=== PATIENT | male | born 1960 | race Caucasian/White ===

== ENCOUNTER 2020-04-11 10:50 | Emergency (ER) | payer OTHER ==
[~2020-04-11] VITALS: Ht 182.9 cm; Wt 140.6 kg
[2020-04-11 11:04] VITALS: BP 137/95
[2020-04-11] MEDS ORDERED: LIDOCAINE 1% HCL (LOCAL ANESTH.) INJ 20ML MDV ONE (12:42)
[2020-04-11] MEDS ORDERED: cefTRIAXone SOD 1,000 MG VL IM ONE ×2 (12:45)
[2020-04-11] MEDS ORDERED: LIDOCAINE 1% HCL (LOCAL ANESTH.) INJ 20ML MDV IJ ONE (13:15)
== END 2020-04-11 13:16 | disposition home or self-care (01) ==
LOC: ER 10:50
DX: N43.2 Other hydrocele (principal); B35.6 Tinea cruris; I10 Essential (primary) hypertension; E78.5 Hyperlipidemia, unspecified
CPT/HCPCS: 76870; 96372; 99284; J0696; J2001

== ENCOUNTER 2020-05-04 09:38 | Emergency (ER) | payer OTHER, MEDICAID ==
[~2020-05-04] VITALS: Ht 182.9 cm; Wt 138.3 kg
[2020-05-04] MEDS ORDERED: ACETAMINOPHEN 325 MG TAB PO ONE (10:00)
[2020-05-04 11:09] VITALS: BP 136/78
== END 2020-05-04 12:09 | disposition home or self-care (01) ==
LOC: ER 09:38
DX: M54.5 Low back pain (principal); E78.5 Hyperlipidemia, unspecified; I10 Essential (primary) hypertension
CPT/HCPCS: 72100; 72220

== ENCOUNTER 2022-08-08 09:22 | Emergency (ER) | payer OTHER, MEDICAID ==
[~2022-08-08] VITALS: Ht 185.4 cm; Wt 150.7 kg
[2022-08-08 09:30] VITALS: BP 123/97
[2022-08-08 10:52] LABS: Basophils # (auto) 0 10 ^3/uL (0-0.2); Basophils % (auto) 0.4 % (0.0-2.0); Eosinophils # (auto) 0.1 10 ^3/uL (0-0.8); Eosinophils % (auto) 2.6 % (0.0-7.0); Hematocrit 50.9 % (41.0-53.0); Lymphocytes # (auto) 1.6 10 ^3/uL (0.4-5.4); Lymphocytes % (auto) 29.6 % (10.0-50.0); Mean Corpuscular Hgb Conc. 33.4 g/dL (32.0-36.0); Mean Corpuscular Volume 95.6 fL (80.0-100.0); Monocytes # (auto) 0.6 10 ^3/uL (0-1.3); Neutrophils % (auto) 56.4 % (37.0-80.0); Nucleated Red Blood Cells % 0.2 %; Red Blood Cells 5.32 10^6/uL (4.5-5.90); Red Cell Distribution Width 13.4 % (11.8-14.3); White Blood Cell 5.4 10^3/uL (4.4-10.8)
[2022-08-08 11:04] LABS: Potassium 4.4 mmol/L (3.5-5.1)
[2022-08-08 11:07] LABS: BUN/Creatinine Ratio 14.5; Bilirubin, Total 0.6 mg/dL (0.2-1.0); Total Protein 7.1 g/dL (6.4-8.2)
== END 2022-08-08 11:28 | disposition left against medical advice (07) ==
LOC: ER 09:22
DX: R22.43 Localized swelling, mass and lump, lower limb, bilateral (principal); I10 Essential (primary) hypertension; E78.5 Hyperlipidemia, unspecified
CPT/HCPCS: 36415; 80053; 85025; 93005

== ENCOUNTER 2025-08-28 19:06 | Inpatient (IN) | payer BC, MEDICAID, OTHER ==
[~2025-08-28] VITALS: Ht 182.9 cm; Wt 154.5 kg
--- NOTE | 2025-08-28 19:31 | ED.PDOC ---
GI ASSESSMENT HPI Comments 64 year old male presents to the ED with a chief compliant of constipation onset 3 days. Patient states he has been experiencing diffused abdominal pain as well as constipation for the past 3 days. PMHx HTN, HLD, hard of hearing. Denies fever, chills, nausea, vomiting, hematemesis, melena, blood in stool. No other symptoms or modifying factors present at this time. Chief Complaint: Constipation Time Seen by MD: 19:25 Primary Care Provider: KYIES Reviewed Notes: Medications, Allergies Allergies: Coded Allergies: NO KNOWN ALLERGIES (Unverified , 05/04/20) Information Source: Patient Mode of Arrival: Ambulatory Timing: Days Duration: Since onset Prehospital treatment: None Quality: Sharp Vomitus: None Severity: Moderate Recent: None Recent Hx of: None Pain Location: Diffuse Modifying Factors: Nothing Associated sign and symptoms: Constipation, Abdominal Pain Past Medical History PAST MEDICAL HISTORY: High Lipids, HTN Surgical History: Denies all surgeries Family History Family History: No family hx of Cancer, No family hx of DM, No family hx of Heart silvino Social History Smoker: Non-Smoker Alcohol: Denies ETOH Use Drugs: Denies Drug Use Lives In: Home Constitutional: denies: chills, diaphoresis, fatigue, fever, malaise, sweats, weakness, others EENTM: denies: blurred vision, double vision, ear bleeding, ear discharge, ear drainage, ear pain, ear ringing, eye pain, eye redness, hearing loss, mouth pain, mouth swelling, nasal discharge, nose bleeding, nose congestion, nose pain, photophobia, tearing, throat pain, throat swelling, voice changes, others Respiratory: denies: cough, hemoptysis, orthopnea, SOB at rest, shortness of breath, SOB with excertion, stridor, wheezing, others Cardiovascular: denies: chest pain, dizzy spells, diaphoresis, Dyspnea on exertion, edema, irregular heart beat, left arm pain, lightheadedness, palpitations, PND, syncope, others Gastrointestinal: reports: abdominal pain, constipated; denies: abdomen distended, blood streaked bowels, diarrhea, dysphagia, difficulty swallowing, hematemesis, melena, nausea, poor appetite, poor fluid intake, rectal bleeding, rectal pain, vomiting, others Genitourinary: denies: burning, dysuria, flank pain, frequency, hematuria, incontinence, penile discharge, penile sore, pain, testicle pain, testicle swelling, urgency, others Neurological: denies: dizziness, fainting, headache, left sided numbness, left sided weakness, numbness, paresthesia, pre-existing deficit, right sided numbness, right sided weakness, seizure, speech problems, tingling, tremors, weakness, others Musculoskeletal: denies: back pain, gout, joint pain, joint swelling, muscle pain, muscle stiffness, neck pain, others Integumetry: denies: bruises, change in color, change in hair/nails, dryness, laceration, lesions, lumps, rash, wounds, others Allergic/Immunocompromised: denies: Difficulty Healing, Frequent Infections, Hives, Itching, others Hematologic/Lymphatic: denies: anemia, blood clots, easy bleeding, easy bruising, swollen glands, others Endocrine: denies: excessive hunger, excessive sweating, excessive thirst, excessive urination, flushing, intolerance to cold, intolerance to heat, unexplained weight gain, unexplained weight loss, others Psychiatric: denies: anxiety, bipolar disorder, depression, hopeless, panic disorder, schizophrenia, sleepless, suicidal, others All Other Systems: Reviewed and Negative Physical Exam General Appearance: Normal HEENT: Normal ENT Inspection, Pharynx Normal, TMs Normal Neck: Full Range of Motion, Non-Tender, Normal, Normal Inspection Respiratory: Chest Non-Tender, Lungs Clear, No Accessory Muscle Use, No Respiratory Distress, Normal Breath Sounds Cardiovascular: No Edema, No JVD, No Murmur, No Gallop, Normal Peripheral Pulses, Regular Rate/Rhythm Breast Exam: Deferred Gastrointestinal: No Organomegaly, Non Tender, No Pulsatile Mass, Normal Bowel Sounds, Soft Genitalia: Deferred Pelvic: Deferred Rectal: Deferred Extremities: No calf tenderness, Normal capillary refill, Normal inspection, Normal range of motion, Non-tender, No pedal edema Musculoskeletal : Apperance: Normal Neurologic: Alert, computer processing scheduler II-XII nml as Tested, No Motor Deficits, Normal Affect, Normal Mood, No Sensory Deficits Cerebellar Function: Normal Reflexes: Normal Skin: Dry, Normal Color, Warm Lymphatic: No Adenopathy Was a procedure done? Was a procedure done?: No GI differential Dx Differential Diagnosis: Appendicitis, Cholecystitis, Constipation, Diverticular disease, Gastritis/PUD, Gastroenteritis, GI hemorrhage, UTI, Urolithiasis, Other X-Ray, Labs, Meds, VS Vital Signs Date Time Temp Pulse Resp B/P (MAP) Pulse Ox O2 Delivery O2 Flow Rate FiO2 08/28/25 19:11 105 20 98 Lab Test 08/28/25 19:30 Range/Units White Blood Count 10.7 4.4-10.8 10^3/uL Red Blood Count 5.52 4.5-5.90 10^6/uL Hemoglobin 18.4 H 13.5-17.5 g/dL Hematocrit 53.2 H 41.0-53.0 % Mean Corpuscular Volume 96.4 80.0-100.0 fL Mean Corpuscular Hemoglobin 33.3 H 28.0-32.0 pg Mean Corpuscular Hemoglobin Concent 34.6 32.0-36.0 g/dL Red Cell Distribution Width 14.2 11.8-14.3 % Platelet Count 86 L 140-450 10^3/uL Mean Platelet Volume 9.1 6.9-10.8 fL Neutrophils (%) (Auto) 76.1 37.0-80.0 % Lymphocytes (%) (Auto) 14.2 10.0-50.0 % Monocytes (%) (Auto) 9.2 0.0-12.0 % Eosinophils (%) (Auto) 0.4 0.0-7.0 % Basophils (%) (Auto) 0.1 0.0-2.0 % Neutrophils # (Auto) 8.1 1.6-8.6 10 ^3/uL Lymphocytes # (Auto) 1.5 0.4-5.4 10 ^3/uL Monocytes # (Auto) 1.0 0-1.3 10 ^3/uL Eosinophils # (Auto) 0 0-0.8 10 ^3/uL Basophils # (Auto) 0 0-0.2 10 ^3/uL Nucleated Red Blood Cells 0.1 % Sodium Level 144 136-145 mmol/L Potassium Level 3.9 3.5-5.1 mmol/L Chloride Level 108 H 98-107 mmol/L Carbon Dioxide Level 26 20-31 mmol/L Anion Gap 10 5-15 Blood Urea Nitrogen 9 9-23 mg/dL Creatinine 1.10 0.700-1.30 mg/dL Glomerular Filtration Rate Calc 76 >90 mL/min BUN/Creatinine Ratio 8.2 L 10.0-20.0 Serum Glucose 138 H 74-106 mg/dL Calcium Level 10.2 8.7-10.4 mg/dL Total Bilirubin 0.9 0.2-1.0 mg/dL Aspartate Amino Transferase (AST) 37 13-40 U/L Alanine Aminotransferase (ALT) 75 H 7-40 U/L Alkaline Phosphatase 70 46-116 U/L Total Protein 8.0 5.7-8.2 g/dL Albumin 5.2 H 3.2-4.8 g/dL Lipase 33 12-53 U/L [facility] [id number] [place] [address] Ph: [phone] DIAGNOSTIC IMAGING Diagnostic Imaging Report : [id number] Signed PATIENT: MYRIAM MORGAN ACCT: [id number] UNIT: [id number] : 1960 LOC: ER ROOM / BED: / AGE / SEX: 64 / M ADM STATUS: REG ER SERVICE 17 ORDERING PHYSICIAN: ELSI RIVERA MD PROCEDURE(s): ABPL - CT AB PEL WO CON-NO ORAL OR IV REASON: abd pain, no BM ORDER NUMBER(s): [id number], ACCESSION NUMBER(s): [id number] Exam: CT CT AB PEL WO CON-NO ORAL OR IV History: abd pain, no BM Comparison Study: None TECHNIQUE: Multidetector CT of the abdomen and pelvis was performed from lung bases to pubic symphysis. Imaging was performed without IV contrast. Axial, coronal, and sagittal multiplanar reformats were obtained from the axial data set by the technologist. RADIATION DOSE: CTDI vol 24.58 mGy. DLP 1660.24 mGy.cm Findings: Limited evaluation of the solid organs in the absence of IV contrast. Lungs: Minimal basilar atelectasis/ scarring. Liver: Diffuse hypoattenuation of the liver suggestive of hepatic steatosis. Hepatomegaly. Spleen: Unremarkable. Pancreas: Unremarkable. Gallbladder: Unremarkable. Adrenals: Unremarkable Kidneys: The right kidney is absent. The left kidney is unremarkable. Pelvic Viscera: Unremarkable. Vasculature: Unremarkable. Retroperitoneum: Unremarkable. Bowel: Dilated appearance of the large bowel with loss of haustral markings. There is stranding about the ascending colon. The small bowel is unremarkable. Musculoskeletal: Minimal grade 1 anterolisthesis of L4 on L5 and L5 on S1. Soft tissues: Unremarkable Impression: 1. Findings as above raising the possibility of toxic megacolon in the appropriate clinical setting. An element of large-bowel obstruction cannot be entirely excluded. Further clinical correlation is suggested. 2. Additional findings as detailed. ATED BY: KERWIN FERNANDES MD DICTATED DATE/TIME: 08/28/252009 SIGNED BY: KERWIN FERNANDES MD SIGNED DATE/TIME: 08/28/252009 CC: Time of 1ST Reevaluation: 19:55 Reevaluation 1ST: Unchanged Patient Education/Counseling: Diagnosis, Treatment, Prognosis Family Education/Counseling: No Family Present SEPSIS Sepsis Screen Date sepsis recognized/suspect: Aug 28, 2025 Time Sepsis recognized/suspect: 1911 Recent Procedure: No On Antibiotic Therapy: No Respiratory Rate >20: No Heart Rate >90: Yes Temp<36 C (96.8 F) or >38.3 C: No SBP <90 or MAP <65 mmHG: No New Acute Mental Status Change: No Is the patient on CPAP, BIPAP,: No Physician Orders Ct Ab Pel Wo Con-No Oral Or Iv (08/28/25 19:18) Vital Signs Date Time Temp Pulse Resp B/P (MAP) Pulse Ox O2 Delivery O2 Flow Rate FiO2 08/28/25 19:11 105 20 98 Laboratory Tests Test 08/28/25 19:30 White Blood Count 10.7 10^3/uL (4.4-10.8) Departure 1 Departure Time of Disposition: 20:52 Impression: Primary Impression: Obstipation Additional Impression: Toxic megacolon Disposition: ADMITTED INPATIENT Admit to: Med Surg Condition: Guarded Discharged With: Self Comments 62-year-old male with abdominal pain and constipation. His abdomen is quite obese and distended. Lab results reviewed. White blood cell count upper limits of normal at 10.7. Hemoconcentrated with H&H of [address] of the abdomen and pelvis is suspicious for toxic megacolon and obstipation with possible element of bowel obstruction. Patient will need admission for IV hydration and supportive care and further workup and possible surgical consultation. Critical Care Note Critical Care Time?: No Stability Stability form required: No Heart Score Heart Score: Heart Score Response (Comments) Value History N/A 0 EKG N/A 0 Age N/A 0 Risk Factors N/A 0 Troponin N/A 0 Total 0 I personally scribed for ELSI RIVERA MD ([email or web address]) on 08/28/25 at 19:31. Electronically submitted by Avani Romo ([email or web address]). I personally scribed for ELSI RIVERA MD ([email or web address]) on 08/28/25 at 20:49. Electronically submitted by Avani Romo ([email or web address]). ELSI RIVERA MD Aug 28, 2025 19:31
[2025-08-28 19:40] LABS: Hematocrit 53.2 % (41.0-53.0); Hemoglobin 18.4 g/dL (13.5-17.5); Mean Corpuscular Hemoglobin 33.3 pg (28.0-32.0); Mean Corpuscular Volume 96.4 fL (80.0-100.0); Nucleated Red Blood Cells % 0.1 %
[2025-08-28 20:02] LABS: Alkaline Phosphatase 70 U/L (46-116); Anion Gap 10 (5-15); BUN/Creatinine Ratio 8.2 (10.0-20.0); Calcium 10.2 mg/dL (8.7-10.4); Carbon Dioxide 26 mmol/L (20-31); Potassium 3.9 mmol/L (3.5-5.1); Sodium 144 mmol/L (136-145); Total Protein 8.0 g/dL (5.7-8.2)
[2025-08-28 20:03] LABS: Bilirubin, Total 0.9 mg/dL (0.2-1.0)
[2025-08-28 20:06] LABS: Alanine Aminotransferase 75 U/L (7-40); Albumin 5.2 g/dL (3.2-4.8); Blood Urea Nitrogen 9 mg/dL (9-23); Chloride 108 mmol/L (98-107); Glucose 138 mg/dL (74-106)
--- NOTE | 2025-08-28 20:13 | DVH ---
Exam: CT CT AB PEL WO CON-NO ORAL OR IV History: abd pain, no BM Comparison Study: None TECHNIQUE: Multidetector CT of the abdomen and pelvis was performed from lung bases to pubic symphysi s. Imaging was performed without IV contrast. Axial, coronal, and sagittal multiplanar reformats were obtained from the axial data set by the technologist. RADIATION DOSE: CTDI vol 24.58 mGy. DLP 1660.24 mGy.cm Findings: Limited evaluation of the solid organs in the absence of IV contrast. Lungs: Minimal basilar atelectasis/ scarring. Liver: Diffuse hypoattenuation of the liver suggestive of hepatic steatosis. Hepatomegaly. Spleen: Unremarkable. Pancreas: Unremarkable. Gallbladder: Unremarkable. Adrenals: Unremarkable Kidneys: The right kidney is absent. The left kidney is unremarkable. Pelvic Viscera: Unremarkable. Vasculature: Unremarkable. Retroperitoneum: Unremarkable. Bowel: Dilated appearance of the large bowel with loss of haustral markings. There is stranding about the ascending colon. The small bowel is unremarkable. Musculoskeletal: Minimal grade 1 anterolisthesis of L4 on L5 and L5 on S1. Soft tissues: Unremarkable Impression: 1. Findings as above raising the possibility of toxic megacolon in the appropriate clinical setting. An element of large-bowel obstruction cannot be entirely excluded. Further clinical correlation is s uggested. 2. Additional findings as detailed.
[2025-08-28 20:16] LABS: Lipase 33 U/L (12-53)
--- NOTE | 2025-08-28 23:41 | DVHHPRES ---
History of Present Illness Resident Creating Document: SKYLAR LORENZANA RESIDENT History of Present Illness Mr. Garay is a deaf 64-year-old male with prior medical history of hypertension and hyperlipidemia, who presents today with chief complaint of constipation. History was taken with ASL translation by Rosalie Brand EMT. He refers 3 days of constipation associated with abdominal bloating and generalized abdominal pain described as sharp, 8-9/10, which worsens with straining, he states he tried to take laxatives and consumed prune juice with no relief. Additionally states he has not passed any gas during this time. Patient reports presenting similar symptoms two years ago, which resolved with enema, in completed colonoscopy four years ago which showed polyps (patient does not remember their malignant). He denies fever, nausea, vomiting, chest pain, palpitation, rectal bleeding, unintentional weight loss, and other symptoms. Due to persistence of constipation he sought medical attention at the emergency department. On evaluation in the ED, patient was tachycardic but otherwise vitals were stable. Initial labs show thrombocytopenia, and elevated ALT. Abdominal CT shows dilated appearance of the large bowel with loss of haustral markings, there stranding about the descending colon. Chest x-ray shows no acute cardiopulmonary process. The patient was placed on NPO and IV fluids. He was admitted for further workup and monitoring. Cardiovascular: HTN Past Surgical History: Other (Intestinal repair when he was a ) Family History: Hypertension Smoke: No ALCOHOL: none Drugs: None Lives: Alone Domestic Violence: Neg Review of Systems Review of Systems Constitutional: Denies weight loss, fever and chills. HEENT: Denies changes in vision and hearing. Respiratory: Denies shortness of breath and cough Cardiovascular: Denies chest discomfort or palpitations GI: Refers abdominal distention, abdominal pain, flatus and constipation, denies vomiting and diarrhea : Denies dysuria and urinary frequency. Musculoskeletal: Denies symptoms Skin: Denies rash and pruritus. Neurological: denies dizziness headache vision or hearing problems Allergies: Coded Allergies: NO KNOWN ALLERGIES (Unverified , 05/04/20) Exam Vital Signs Vital Signs Date Time Temp Pulse Resp B/P (MAP) Pulse Ox O2 Delivery O2 Flow Rate FiO2 08/28/25 22:18 98.3 110 16 166/83 (110) 96 98.3 Exam General: The patient alert and oriented in person place and time. Patient following commands HEENT: Normocephalic, atraumatic, normal reactive pupils, EOM intact, pink conjunctiva, pink moist mucous membrane Respiratory/pulmonary: Bilateral chest expansion, no pain on palpation of chest wall, clear lungs bilaterally, vesicular murmurs present in almost all lung callahan, no associated crackles or wheezes. Cardiovascular: Normal RRR, normal S1 and S2, no murmurs Abdomen: Obese, Abdomen distended, decreased bowel sounds, soft, mild pain to deep palpation in abdominal quadrants, no palpable masses. NG tube in placed in right nostril, on low intermittent suction, with brownish debit. Extremities: No deformities, there is no peripheral edema present at the lower extremities, normal pulses Skin: No rashes or pruritus, there is no sacral edema present at this time. Neurological: Intact cranial nerves with no focal neurologic deficits Labs/Xrays Labs Test 08/28/25 19:30 Range/Units White Blood Count 10.7 4.4-10.8 10^3/uL Red Blood Count 5.52 4.5-5.90 10^6/uL Hemoglobin 18.4 H 13.5-17.5 g/dL Hematocrit 53.2 H 41.0-53.0 % Mean Corpuscular Volume 96.4 80.0-100.0 fL Mean Corpuscular Hemoglobin 33.3 H 28.0-32.0 pg Mean Corpuscular Hemoglobin Concent 34.6 32.0-36.0 g/dL Red Cell Distribution Width 14.2 11.8-14.3 % Platelet Count 86 L 140-450 10^3/uL Mean Platelet Volume 9.1 6.9-10.8 fL Neutrophils (%) (Auto) 76.1 37.0-80.0 % Lymphocytes (%) (Auto) 14.2 10.0-50.0 % Monocytes (%) (Auto) 9.2 0.0-12.0 % Eosinophils (%) (Auto) 0.4 0.0-7.0 % Basophils (%) (Auto) 0.1 0.0-2.0 % Neutrophils # (Auto) 8.1 1.6-8.6 10 ^3/uL Lymphocytes # (Auto) 1.5 0.4-5.4 10 ^3/uL Monocytes # (Auto) 1.0 0-1.3 10 ^3/uL Eosinophils # (Auto) 0 0-0.8 10 ^3/uL Basophils # (Auto) 0 0-0.2 10 ^3/uL Nucleated Red Blood Cells 0.1 % Sodium Level 144 136-145 mmol/L Potassium Level 3.9 3.5-5.1 mmol/L Chloride Level 108 H 98-107 mmol/L Carbon Dioxide Level 26 20-31 mmol/L Anion Gap 10 5-15 Blood Urea Nitrogen 9 9-23 mg/dL Creatinine 1.10 0.700-1.30 mg/dL Glomerular Filtration Rate Calc 76 >90 mL/min BUN/Creatinine Ratio 8.2 L 10.0-20.0 Serum Glucose 138 H 74-106 mg/dL Calcium Level 10.2 8.7-10.4 mg/dL Total Bilirubin 0.9 0.2-1.0 mg/dL Aspartate Amino Transferase (AST) 37 13-40 U/L Alanine Aminotransferase (ALT) 75 H 7-40 U/L Alkaline Phosphatase 70 46-116 U/L Total Protein 8.0 5.7-8.2 g/dL Albumin 5.2 H 3.2-4.8 g/dL Lipase 33 12-53 U/L SEPSIS Sepsis Screen Date sepsis recognized/suspect: Aug 28, 2025 Time Sepsis recognized/suspect: 1911 Recent Procedure: No On Antibiotic Therapy: No Respiratory Rate >20: No Heart Rate >90: Yes Temp<36 C (96.8 F) or >38.3 C: No SBP <90 or MAP <65 mmHG: No New Acute Mental Status Change: No Is the patient on CPAP, BIPAP,: No Physician Orders Ct Ab Pel Wo Con-No Oral Or Iv (08/28/25 19:18) Admit (08/28/25 23:39) Allergies (08/28/25 23:39) Code Status (08/28/25 23:39) Enoxaparin Sodium (Lovenox) (08/29/25 10:00) Npo (Nothing By Mouth) Diet (08/29/25 Breakfast) Condition: Stable (08/28/25 23:39) Morphine Sulfate Injection (08/28/25 23:45) Vital Signs Date Time Temp Pulse Resp B/P (MAP) Pulse Ox O2 Delivery O2 Flow Rate FiO2 08/28/25 22:18 98.3 110 16 166/83 (110) 96 98.3 08/28/25 19:11 105 20 98 Laboratory Tests Test 08/28/25 19:30 White Blood Count 10.7 10^3/uL (4.4-10.8) Assessment/Plan Assessment/Plan Assessment and Plan: Possible bowel obstruction Constipation due to above Acute abdominal pain secondary to above - Abdominal CT: Dilated appearance of the large bowel with loss of haustral markings, there is stranding about the ascending colon, findings as above raising the possibility of toxic megacolon in the appropriate clinical setting, an element of large bowel obstruction can not be entirely excluded. - Patient has NG tube placed, on NPO, pending evaluation by GI and General surgery - NS 1000 cc bolus IV once - NS maintenance 100 cc/hr - ketorolac 15 mg IV q.6 hours PRN - Protonix 40 mg IV daily - Consult with GI and General surgery have been ordered Hypokalemia, 3.3 - Potassium 20 mEq IV once Thrombocytopenia - Monitor CBC Hypertension - Continue lisinopril 10 mg p.o. daily once NPO is lifted Hyperlipidemia - Continue atorvastatin 20 mg p.o. daily once NPO is lifted Morbid obesity, BMI 44.0 kg/m2 - Patient has been counseled on the importance of maintaining a balanced diet, regular moderate exercise with intolerance, and weight loss. Diet: NPO DVT prophylaxis: SCDs (no heparin products due to thrombocytopenia) GI prophylaxis: Protonix 40 mg IV daily Case discussed with Dr. Quinn Goals of care discussed with the patient for over Plan discussed with: Patient, Other (Nurses) My Orders Orders - SKYLAR LORENZANA Procedure Category Date Status Time Admit ADMIT 08/28/25 Verified 23:39 Allergies FIEDL 08/28/25 Verified 23:39 Code Status CODE 08/28/25 Verified 23:39 Enoxaparin Sodium PHA 08/29/25 Verified (Lovenox) 10:00 Npo (Nothing By DIET 08/29/25 Verified Mouth) Diet Breakfast Condition: Stable FIDEL 08/28/25 Verified 23:39 Morphine Sulfate PHA 08/28/25 Verified Injection 23:45 Date of Service: Aug 28, 2025 Billing Provider: AMBER ANTONIO MD Common Visit Codes: 65312-MLMEGLC INP/OBS CARE (HIGH) Secondary Visit Codes: 73346-[id number] CARE PLAN 30 MINUTES SKYLAR LORENZANA Aug 28, 2025 23:41 KRISTEN LANGFORD RESIDENT Aug 29, 2025 08:53
[2025-08-28] MEDS ORDERED: KETOROLAC TROMETH 30 MG/ML 1ML VIAL IV PRN (23:45)
[2025-08-28] MEDS ORDERED: MORPHINE SULFATE INJ 2 MG/ml SYRG IV PRN (23:45)
[2025-08-29] VITALS (8 sets, daily range): BP systolic 125–177; BP diastolic 95–99; PULSE 81–103; RESP 18; TEMP 97.8–98.1; O2SAT 94–96
[2025-08-29 00:09] LABS: Magnesium 2.0 mg/dL (1.6-2.6)
[2025-08-29] MEDS: GOLYTELY 4L KIT PO ONE (02:01)
[2025-08-29] MEDS: SODIUM CHLORIDE 0.9% 1,000 ML IV ONE (02:03)
[2025-08-29] MEDS: SODIUM CHLORIDE 0.9% 1,000 ML IV SCH (03:35)
[2025-08-29] MEDS: KETOROLAC TROMETH 30 MG/ML 1ML VIAL IV ONE (03:35)
--- NOTE | 2025-08-29 04:38 | DVH ---
CHEST RADIOGRAPH Indication: NG placement Technique: Single frontal view of the chest was obtained COMPARISON: None FINDINGS: Lines and Tubes: Enteric catheter courses below the level of the diaphragms and terminates beyond the inferior margin of the image. Lungs: Moderate diffuse increased prominence of the pulmonary vasculature. No evidence of focal cons olidation. Mild right hemidiaphragmatic elevation. Pleura: No effusion. No pneumothorax. Cardiomediastinal contours: Unremarkable Bones: Unremarkable IMPRESSION: 1. Enteric catheter courses below the level of the diaphragms and terminates beyond the inferior cristina in of the image. 2. Moderate diffuse increased prominence of the pulmonary vasculature.
[2025-08-29 04:46] LABS: Hematocrit 50.3 % (41.0-53.0); Hemoglobin 17.3 g/dL (13.5-17.5); Mean Corpuscular Hemoglobin 33.0 pg (28.0-32.0); Mean Corpuscular Volume 96.1 fL (80.0-100.0); Nucleated Red Blood Cells % 0.2 %
[2025-08-29 04:54] LABS: Sodium 145 mmol/L (136-145)
[2025-08-29 04:55] LABS: Anion Gap 13 (5-15); Calcium 9.3 mg/dL (8.7-10.4); Carbon Dioxide 20 mmol/L (20-31)
[2025-08-29 05:00] LABS: BUN/Creatinine Ratio 10.2 (10.0-20.0); Blood Urea Nitrogen 10 mg/dL (9-23)
[2025-08-29 05:11] LABS: Chloride 112 mmol/L (98-107); Glucose 137 mg/dL (74-106); Potassium 3.4 mmol/L (3.5-5.1)
[2025-08-29] MEDS: POTASSIUM CHL 20MEQ/100ML 100 ML IV ONE (07:14)
[2025-08-29] MEDS ORDERED: ENOXAPARIN SOD 40 MG/0.4 ML SYRINGE SC SCH (10:00)
[2025-08-29] MEDS: PANTOPRAZOLE 40 MG/10 ML VIAL INJ IV SCH (10:00)
--- NOTE | 2025-08-29 13:16 | DVHINCON2 ---
GI Consult Consult Note GI consult note Date of Consultation: 08/29/2025 Chief Complaint: Bowel obstruction Referring Physician: Dr. Beatty H&P: 64-year-old male admitted with complains of constipation for the past three days, and also having abdominal bloating and generalized abdominal pain. Patient has about two bowel movements this morning which is loose and watery in nature. No melena or red blood in stool. Denies nausea vomiting. Status post colonoscopy gastro group five years ago with polypectomy. Patient denies any recent travel or contact with any sick person. Admits to possible antibiotic use in the last few months unsure about name of medications Past Medical History: HTN, hyperlipidemia Past Surgical History: (Intestinal repair when he was a ) Social History: NO smoking, drinking ETOH and use of illegal drugs. Family History: Noncontributory Review of Systems: Constitutional: no fever, chill, weight loss HEENT: no eye pain, no hearing loss, no oral lesion, no scleral icterus Heart: no chest pain, no chest pressure Lung: no cough, no dyspnea with exertion Abdomen: see HPI Physical exam: General: NAD, AAOX3 Chest: lung callahan clear to auscultation Heart: RRR, no murmur Abdomen: Moderate-distended, mild generalized tenderness to palpation, +BS Labs: Labs Test 08/29/25 09:09 08/29/25 04:28 08/28/25 19:30 Range/Units Lactic Acid Level 1.8 0.4-2.0 mmol/L White Blood Count 8.8 4.4-10.8 10^3/uL Red Blood Count 5.23 4.5-5.90 10^6/uL Hemoglobin 17.3 13.5-17.5 g/dL Hematocrit 50.3 41.0-53.0 % Mean Corpuscular Volume 96.1 80.0-100.0 fL Mean Corpuscular Hemoglobin 33.0 H 28.0-32.0 pg Mean Corpuscular Hemoglobin Concent 34.4 32.0-36.0 g/dL Red Cell Distribution Width 13.9 11.8-14.3 % Platelet Count 76 L 140-450 10^3/uL Mean Platelet Volume 9.3 6.9-10.8 fL Neutrophils (%) (Auto) 80.3 H 37.0-80.0 % Lymphocytes (%) (Auto) 11.7 10.0-50.0 % Monocytes (%) (Auto) 7.6 0.0-12.0 % Eosinophils (%) (Auto) 0.1 0.0-7.0 % Basophils (%) (Auto) 0.3 0.0-2.0 % Neutrophils # (Auto) 7.1 1.6-8.6 10 ^3/uL Lymphocytes # (Auto) 1.0 0.4-5.4 10 ^3/uL Monocytes # (Auto) 0.7 0-1.3 10 ^3/uL Eosinophils # (Auto) 0 0-0.8 10 ^3/uL Basophils # (Auto) 0 0-0.2 10 ^3/uL Nucleated Red Blood Cells 0.2 % Sodium Level 145 136-145 mmol/L Potassium Level 3.4 L 3.5-5.1 mmol/L Chloride Level 112 H 98-107 mmol/L Carbon Dioxide Level 20 20-31 mmol/L Anion Gap 13 5-15 Blood Urea Nitrogen 10 9-23 mg/dL Creatinine 0.98 0.700-1.30 mg/dL Glomerular Filtration Rate Calc 87 >90 mL/min BUN/Creatinine Ratio 10.2 10.0-20.0 Serum Glucose 137 H 74-106 mg/dL Calcium Level 9.3 8.7-10.4 mg/dL Hemoglobin A1c 5.4 <5.7 % A1C Phosphorus Level 3.5 2.4-5.1 mg/dL Magnesium Level 2.0 1.6-2.6 mg/dL Total Bilirubin 0.9 0.2-1.0 mg/dL Aspartate Amino Transferase (AST) 37 13-40 U/L Alanine Aminotransferase (ALT) 75 H 7-40 U/L Alkaline Phosphatase 70 46-116 U/L Total Protein 8.0 5.7-8.2 g/dL Albumin 5.2 H 3.2-4.8 g/dL Lipase 33 12-53 U/L Vitamin B12 Level 239 211-911 pg/mL Vitamin D 25-Hydroxy 27.7 L 30.0-100 ng/mL Thyroid Stimulating Hormone (TSH) 2.88 0.55-4.78 uIU/mL Imaging: CT abdomen pelvis Impression: 1. Findings as above raising the possibility of toxic megacolon in the appropriate clinical setting. An element of large-bowel obstruction cannot be en tirely excluded. Further clinical correlation is suggested. 2. Additional findings as detailed. Assessment: Abdominal pain Constipation Abnormal CT findings of possible toxic megacolon versus large bowel obstruction Plan: Discussed with Dr. Kerr Patient admits to having diarrhea at this time we will check for stool occult blood, stool bacterial culture, WBC, and C diff IV Flagyl Npo We will continue to monitor patient Plan discussed with patient and RN Thank you for this consult Date of Service: Aug 29, 2025 Billing Provider: YANETH BYRD Common Visit Codes: CONSULT ONLY Consultation Codes: [id number] CONSULT <60MIN YANETH BYRD Aug 29, 2025 13:15
--- NOTE | 2025-08-29 15:03 | DVHPNRES ---
Progress Note Date Seen: Aug 29, 2025 Resident Creating Document: BARBER MILLER RESIDENT Has the PT tested + for MRSA If YES, has PT been informed?: No Medical Necessity Reason Pt with a Central, PICC or Fol: No Subjective Review of Systems Mr. Garay is a deaf 64-year-old male with prior medical history of hypertension and hyperlipidemia, who presents today with chief complaint of constipation. History was taken with ASL translation by Rosalie Brand EMT. He refers 3 days of constipation associated with abdominal bloating and generalized abdominal pain described as sharp, 8-9/10, which worsens with straining, he states he tried to take laxatives and consumed prune juice with no relief. Additionally states he has not passed any gas during this time. Patient reports presenting similar symptoms two years ago, which resolved with enema, in completed colonoscopy four years ago which showed polyps (patient does not remember their malignant). He denies fever, nausea, vomiting, chest pain, palpitation, rectal bleeding, unintentional weight loss, and other symptoms. Due to persistence of constipation he sought medical attention at the emergency department. On evaluation in the ED, patient was tachycardic but otherwise vitals were stable. Initial labs show thrombocytopenia, and elevated ALT. Abdominal CT shows dilated appearance of the large bowel with loss of haustral markings, there stranding about the descending colon. Chest x-ray shows no acute cardiopulmonary process. The patient was placed on NPO and IV fluids. He was admitted for further workup and monitoring. Past medical history: HTN Past Surgical History: Other (Intestinal repair when he was a ) Family History: Hypertension Smoke: No ALCOHOL: none Drugs: None Lives: Alone Domestic Violence: Neg ROS: 08/29/25: Pt was seen and examined by me at the bedside. Pt had passed stool 3 times with golitely and NG tube had been removed. Pt was kept npo and gastro and surgery consult were done. gastro suggested since pt passed stool- 3 episodes- check for stool occult blood, stool bacterial culture, WBC, and C diff. and began IV Flagyl. surg consult pending. Objective vital signs Vital Sign Date Time Temp Pulse Resp B/P (MAP) Pulse Ox O2 Delivery O2 Flow Rate FiO2 08/29/25 13:37 98.1 92 18 149/99 (116) 94 98.1 08/29/25 03:42 Room Air* 0 21 Total Intake and Output 08/28/25 08/28/25 08/29/25 15:00 23:00 07:00 Intake Total 0 ml Output Total 0 ml Balance 0 ml medications Current Medications Medications Dose Ordered Sig/Lamine Route Start Time Stop Time Status Last Admin Dose Admin Sodium Chloride 1,000 ml @ 100 mls/hr Q10H IV 08/28/25 23:45 08/29/25 03:35 100 MLS/HR Ketorolac Tromethamine 15 mg Q6HPRN PRN IV 08/28/25 23:45 09/02/25 23:44 Pantoprazole Sodium 40 mg DAILY IV 08/29/25 08:00 08/29/25 10:00 40 MG Metronidazole 100 ml @ 100 mls/hr Q8HR IV 08/29/25 14:00 Examination General: The patient alert and oriented in person place and time. Patient following commands HEENT: Normocephalic, atraumatic, normal reactive pupils, EOM intact, pink conjunctiva, pink moist mucous membrane Respiratory/pulmonary: Bilateral chest expansion, no pain on palpation of chest wall, clear lungs bilaterally, vesicular murmurs present in almost all lung callahan, no associated crackles or wheezes. Cardiovascular: Normal RRR, normal S1 and S2, no murmurs Abdomen: Obese, Abdomen distended, decreased bowel sounds, soft, mild pain to deep palpation in abdominal quadrants, no palpable masses. shifted umblicus to left next to surgical scar Extremities: No deformities, there is no peripheral edema present at the lower extremities, normal pulses Skin: No rashes or pruritus, there is no sacral edema present at this time. Neurological: Intact cranial nerves with no focal neurologic deficits laboratory and microbiology Laboratory Tests 08/29/25 04:28 Test 08/29/25 04:28 Range/Units Serum Glucose 137 H 74-106 mg/dL Labs and/or images reviewed: Labs reviewed by me, Image(s) reviewed by me Problem List/Assessment/Plan Problem List/Assessment/Plan #Possible bowel obstruction #Constipation due to above #Acute abdominal pain secondary to above - Abdominal CT: Dilated appearance of the large bowel with loss of haustral markings, there is stranding about the ascending colon, findings as above raising the possibility of toxic megacolon in the appropriate clinical setting, an element of large bowel obstruction can not be entirely excluded. - Patient has NG tube placed, on NPO, pending evaluation by GI and General surgery - NS 1000 cc bolus IV once - NS maintenance 100 cc/hr - ketorolac 15 mg IV q.6 hours PRN - Protonix 40 mg IV daily - Consult with GI suggested: since pt passed stool- 3 episodes- check for stool occult blood, stool bacterial culture, WBC, and C diff. -IV Flagyl - General surgery consulted, pending #Hypokalemia, 3.3 - Potassium 20 mEq IV once #Thrombocytopenia - Monitor CBC #Hypertension - Continue lisinopril 10 mg p.o. daily once NPO is lifted #Hyperlipidemia - Continue atorvastatin 20 mg p.o. daily once NPO is lifted #Morbid obesity, BMI 44.0 kg/m2 - Patient has been counseled on the importance of maintaining a balanced diet, regular moderate exercise with intolerance, and weight loss. Diet: NPO DVT prophylaxis: SCDs (no heparin products due to thrombocytopenia) GI prophylaxis: Protonix 40 mg IV daily Case discussed with Dr. Nogueira Plan discussed with: Patient Date of Service: Aug 29, 2025 Billing Provider: DOREEN NOGUEIRA MD Common Visit Codes: [id number] INP/OBS CARE(HIGH) BARBER MILLER RESIDENT Aug 29, 2025 15:03 DOREEN NOGUEIRA MD Aug 30, 2025 19:48
[2025-08-29 16:57] LABS: Amphetamine Screen, Urine Neg (NEGATIVE); Barbiturate Scree,Urine Neg (NEGATIVE); Benzodiazephine Screen, Urine Neg (NEGATIVE); Cannabinoid Screen, Urine Neg (NEGATIVE); Cocaine Screen, Urine Neg (NEGATIVE); Opiate Scree,Urine Neg (NEGATIVE); Phencyclidine Screen, Urine Neg (NEGATIVE)
[2025-08-29 17:11] LABS: Urine Protein, UAD 1+ (Negative)
[2025-08-29] MEDS: FLEET ENEMA(ADULT) 135 ML PR SCH (18:00)
--- NOTE | 2025-08-29 23:39 | DVHINCON2 ---
Consultation - Surgical Date Seen: Aug 29, 2025 Referring Physician Reason for Consultation Pancolonic dilation concern for megacolon History of Present Illness History of Present Illness Mr. Harvey is a 64-year-old male who was admitted to the hospital due to abdominal distention. Patient denies any nausea or vomiting. Denies any past history of the same problem. States that distention started approximately 2 days ago, and he has not been eating since. His last bowel movement was 3 days ago. But today he had 2 liquid bowel movements already in the hospital. Patient denies any fevers, chills, changes in urinary habits. Past Medical/Surgical History Past Medical/Surgical History hypertension and hyperlipidemia, Allergies and medications Allergies: Coded Allergies: NO KNOWN ALLERGIES (Unverified , 05/04/20) Review of systems Review of Systems: Deferred Examination Vital signs Vital Signs Date Time Temp Pulse Resp B/P (MAP) Pulse Ox O2 Delivery O2 Flow Rate FiO2 08/29/25 21:00 97.9 103 18 125/97 (106) 95 97.9 08/29/25 08:00 Room Air* 0 21 Medications Current Medications Medications (Trade) Dose Ordered Sig/Lamine Route PRN Reason Start Time Stop Time Status Last Admin Enoxaparin Sodium (Lovenox) 40 mg DAILY SC 08/29/25 10:00 08/29/25 08:53 DC Morphine Sulfate 2 mg Q4HPRN PRN IV SEVERE PAIN (7-10 PAIN SCALE) 08/28/25 23:45 08/28/25 23:54 DC Sodium Chloride 1,000 ml @ 100 mls/hr Q10H IV 08/28/25 23:45 08/29/25 21:06 Ketorolac Tromethamine (Toradol Injection) 15 mg Q6HPRN PRN IV MODERATE PAIN (4-6 PAIN SCALE) 08/28/25 23:45 09/02/25 23:44 Pantoprazole Sodium (Protonix) 40 mg DAILY IV 08/29/25 08:00 08/29/25 10:00 Metronidazole 100 ml @ 100 mls/hr Q8HR IV 08/29/25 14:00 08/29/25 22:10 Sodium Biphosphate/ Sodium Phosphate 135 ml Q6H NM 08/29/25 18:00 08/30/25 17:59 Laboratory Labs Test 08/29/25 16:35 08/29/25 16:32 08/29/25 09:09 08/29/25 04:28 Range/Units Stool for White Cells None seen Urine Color Yellow Yellow Urine Clarity Clear Clear Urine pH 5.5 5.0-9.0 Urine Specific [place] 1.035 1.001-1.035 Urine Protein 1+ H Negative Urine Ketones Trace Negative Urine Blood Negative Negative /uL Urine Nitrite Negative Negative Urine Bilirubin Negative Negative Urine Urobilinogen Normal Negative mg/dL Urine Leukocyte Esterase Negative Negative /uL Urine RBC 4 0 - 3 /hpf Urine Microscopic WBC 3 0-3 /HPF Urine Squamous Epithelial Cells None seen <5 /hpf Urine Bacteria Few H None Seen /hpf Urine Mucus Few None Seen Urine Sperm Present None Seen /hpf Urine Glucose Normal Normal mg/dL Urine Opiates Screen Neg NEGATIVE Urine Fentanyl Screen Neg NEGATIVE Urine Barbiturates Screen Neg NEGATIVE Urine Phencyclidine Screen Neg NEGATIVE Urine Amphetamines Screen Neg NEGATIVE Urine Benzodiazepines Screen Neg NEGATIVE Urine Cocaine Screen Neg NEGATIVE Urine Cannabinoids Screen Neg NEGATIVE Lactic Acid Level 1.8 0.4-2.0 mmol/L White Blood Count 8.8 4.4-10.8 10^3/uL Red Blood Count 5.23 4.5-5.90 10^6/uL Hemoglobin 17.3 13.5-17.5 g/dL Hematocrit 50.3 41.0-53.0 % Mean Corpuscular Volume 96.1 80.0-100.0 fL Mean Corpuscular Hemoglobin 33.0 H 28.0-32.0 pg Mean Corpuscular Hemoglobin Concent 34.4 32.0-36.0 g/dL Red Cell Distribution Width 13.9 11.8-14.3 % Platelet Count 76 L 140-450 10^3/uL Mean Platelet Volume 9.3 6.9-10.8 fL Neutrophils (%) (Auto) 80.3 H 37.0-80.0 % Lymphocytes (%) (Auto) 11.7 10.0-50.0 % Monocytes (%) (Auto) 7.6 0.0-12.0 % Eosinophils (%) (Auto) 0.1 0.0-7.0 % Basophils (%) (Auto) 0.3 0.0-2.0 % Neutrophils # (Auto) 7.1 1.6-8.6 10 ^3/uL Lymphocytes # (Auto) 1.0 0.4-5.4 10 ^3/uL Monocytes # (Auto) 0.7 0-1.3 10 ^3/uL Eosinophils # (Auto) 0 0-0.8 10 ^3/uL Basophils # (Auto) 0 0-0.2 10 ^3/uL Nucleated Red Blood Cells 0.2 % Sodium Level 145 136-145 mmol/L Potassium Level 3.4 L 3.5-5.1 mmol/L Chloride Level 112 H 98-107 mmol/L Carbon Dioxide Level 20 20-31 mmol/L Anion Gap 13 5-15 Blood Urea Nitrogen 10 9-23 mg/dL Creatinine 0.98 0.700-1.30 mg/dL Glomerular Filtration Rate Calc 87 >90 mL/min BUN/Creatinine Ratio 10.2 10.0-20.0 Serum Glucose 137 H 74-106 mg/dL Calcium Level 9.3 8.7-10.4 mg/dL Test 08/28/25 19:30 Range/Units Hemoglobin A1c 5.4 <5.7 % A1C Phosphorus Level 3.5 2.4-5.1 mg/dL Magnesium Level 2.0 1.6-2.6 mg/dL Total Bilirubin 0.9 0.2-1.0 mg/dL Aspartate Amino Transferase (AST) 37 13-40 U/L Alanine Aminotransferase (ALT) 75 H 7-40 U/L Alkaline Phosphatase 70 46-116 U/L Total Protein 8.0 5.7-8.2 g/dL Albumin 5.2 H 3.2-4.8 g/dL Lipase 33 12-53 U/L Vitamin B12 Level 239 211-911 pg/mL Vitamin D 25-Hydroxy 27.7 L 30.0-100 ng/mL Thyroid Stimulating Hormone (TSH) 2.88 0.55-4.78 uIU/mL Microbiology Date/Time Source Procedure Growth Status 08/29/25 16:00 Stool Ordered Examination: GENERAL:Normal, ABDOMEN:Abnormal (Distended, depressible, nontender, no rebound, no guarding) Problem List/Assessment/Plan Problems: (1) Abdominal distention Assessment and Plan Mr. Harvey is a 64-year-old male who presented to the hospital due to abdominal distention that has been going on for several days. I was consulted for the concern of megacolon. CT was reviewed and shows diffuse pancolonic dilation with stool, no masses seen no hernia seen. Patient is nontoxic, afebrile with stable vital signs, no leukocytosis. Therefore this is not toxic megacolon, patient will need aggressive GI motility agents, to help with passing flatus and stool which therefore would alleviate his distention. 1. Recommend every 6 hour enemas for 24 hours 2. Tomorrow after enemas or done give 1 gal of GoLYTELY 3. I will sign off please call with any questions or concerns Plan discussed with Plan discussed with: Patient Visit Coding Surgery Date of Service if different f: Aug 29, 2025 Billing Provider: BOUBACAR WILKERSON MD Surgery Visit Codes: [id number] - INP CONSULT <110 MIN BOUBACAR WILKERSON MD Aug 29, 2025 23:39
[2025-08-30] VITALS (7 sets, daily range): BP systolic 100–143; BP diastolic 58–90; PULSE 68–86; RESP 16–21; TEMP 97.3–98.8; O2SAT 93–95
[2025-08-30 10:06] LABS: Hematocrit 46.0 % (41.0-53.0); Hemoglobin 15.9 g/dL (13.5-17.5); Mean Corpuscular Hemoglobin 33.4 pg (28.0-32.0); Mean Corpuscular Volume 96.2 fL (80.0-100.0); Nucleated Red Blood Cells % 0.1 %
[2025-08-30 10:37] LABS: Albumin 4.1 g/dL (3.2-4.8); Alkaline Phosphatase 51 U/L (46-116); Anion Gap 12 (5-15); BUN/Creatinine Ratio 18.1 (10.0-20.0); Bilirubin, Total 0.7 mg/dL (0.2-1.0); Blood Urea Nitrogen 19 mg/dL (9-23); Carbon Dioxide 23 mmol/L (20-31); Total Protein 6.0 g/dL (5.7-8.2)
[2025-08-30 10:39] LABS: Alanine Aminotransferase 46 U/L (7-40); Calcium 8.4 mg/dL (8.7-10.4); Chloride 111 mmol/L (98-107); Glucose 108 mg/dL (74-106); Potassium 3.0 mmol/L (3.5-5.1); Sodium 146 mmol/L (136-145)
--- NOTE | 2025-08-30 10:58 | DVH ---
Date: 08/30/2025 09:16 AM Examination: XY KUB ABDOMEN SINGLE VIEW History: toxic megacolon Comparison: None TECHNIQUE: Frontal views of the abdomen was obtained. FINDINGS: Colon measures up to11 cm. An element of large-bowel obstruction cannot be entirely excluded. The lung bases are unremarkable. No acute osseous abnormality identified. IMPRESSION: Colon measures up to 11 cm. An element of large-bowel obstruction cannot be entirely excluded. Findings as above raising the possibility of toxic megacolon in the appropriate clinical setting. An element of large-bowel obstruction cannot be entirely excluded.
--- NOTE | 2025-08-30 12:31 | DVHPN2 ---
Subjective Patient admits to multiple bowel movement since yesterday. No melena or red blood in stool. Denies nausea or vomiting. Decreased in abdominal bloating per patient. Patient refused Fleet's enema today per RN Changes from previous H/P or p: No Changes Objective Vitals Vital Signs Date Time Temp Pulse Resp B/P (MAP) Pulse Ox O2 Delivery O2 Flow Rate FiO2 08/30/25 09:00 98.1 83 18 128/80 (96) 93 98.1 08/29/25 20:00 Room Air* 0 21 Intake/Output Intake and Output 08/30/25 07:00 Intake Total 300 ml Balance 300 ml Intake Oral 0 ml IV Total 300 ml # Voids 6 # Bowel Movements 4 Exam General: NAD, AAOX3 Chest: lung callahan clear to auscultation Heart: RRR, no murmur Abdomen: Moderate-distended, mild generalized tenderness to palpation, +BS Medications Current Medications Medications Dose Ordered Sig/Lamine Route Start Time Stop Time Status Last Admin Dose Admin Sodium Chloride 1,000 ml @ 100 mls/hr Q10H IV 08/28/25 23:45 08/29/25 21:06 100 MLS/HR Ketorolac Tromethamine 15 mg Q6HPRN PRN IV 08/28/25 23:45 09/02/25 23:44 Pantoprazole Sodium 40 mg DAILY IV 08/29/25 08:00 08/30/25 10:49 40 MG Metronidazole 100 ml @ 100 mls/hr Q8HR IV 08/29/25 14:00 08/30/25 05:54 100 MLS/HR Sodium Biphosphate/ Sodium Phosphate 135 ml Q6H [place] 08/29/25 18:00 08/30/25 17:59 Laboratory Results Laboratory Tests 08/30/25 09:30 Chemistry Test 08/30/25 09:30 Albumin 4.1 g/dL (3.2-4.8) Calcium Level 8.4 mg/dL (8.7-10.4) L Total Protein 6.0 g/dL (5.7-8.2) LFT Test 08/30/25 09:30 Alanine Aminotransferase (ALT) 46 U/L (7-40) H Alkaline Phosphatase 51 U/L (46-116) Aspartate Amino Transferase (AST) 30 U/L (13-40) Total Bilirubin 0.7 mg/dL (0.2-1.0) Urinalysis Test 08/29/25 16:32 Urine Color Yellow (Yellow) Urine Clarity Clear (Clear) Urine pH 5.5 (5.0-9.0) Urine Specific [place] 1.035 (1.001-1.035) Urine Protein 1+ (Negative) H Urine Ketones Trace (Negative) Urine Blood Negative /uL (Negative) Urine Nitrite Negative (Negative) Urine Bilirubin Negative (Negative) Urine Urobilinogen Normal mg/dL (Negative) Urine Leukocyte Esterase Negative /uL (Negative) Urine RBC 4 /hpf (0 - 3) Urine Microscopic WBC 3 /HPF (0-3) Urine Squamous Epithelial Cells None seen /hpf (<5) Urine Bacteria Few /hpf (None Seen) H Urine Mucus Few (None Seen) Urine Sperm Present /hpf (None Seen) Urine Glucose Normal mg/dL (Normal) Microbiology Microbiology Date/Time Source Procedure Growth Status 08/29/25 16:00 Stool Received Labs and/or images reviewed: Labs reviewed by me, Image(s) reviewed by me Assessment/Plan Assessment/Plan Abdominal pain Constipation Abnormal CT findings of possible toxic megacolon versus large bowel obstruction Plan: Discussed with Dr. Kerr Stressed importance of Fleet's enema patient agreed and we will continue this treatment GoLYTELY Clear liquid diet advance to full liquid if tolerating We will continue to monitor patient Plan discussed with: Patient, Other (RN) My Orders Orders - YANETH BYRD Procedure Category Date Status Time Stool Bacterial CASSIDY 08/29/25 In Process Culture 16:00 Metronidazole PHA 08/29/25 In Process 500mg/100ml (Flagyl 14:00 Clear Liq Diet DIET 08/30/25 Transmitted Lunch Carcinoembryonic LAB 08/30/25 Transmitted Antigen 12:27 Date of Service: Aug 30, 2025 Billing Provider: YANETH BYRD Common Visit Codes: [id number] INP/OBS CARE(HIGH) YANETH BYRD Aug 30, 2025 12:31
--- NOTE | 2025-08-30 13:32 | DVHPNRES ---
Progress Note Date Seen: Aug 30, 2025 Resident Creating Document: BARBER MILLER RESIDENT Has the PT tested + for MRSA If YES, has PT been informed?: No Medical Necessity Reason Pt with a Central, PICC or Fol: No Subjective Review of Systems Mr. Garay is a deaf 64-year-old male with prior medical history of hypertension and hyperlipidemia, who presents today with chief complaint of constipation. History was taken with ASL translation by Rosalie Brand EMT. He refers 3 days of constipation associated with abdominal bloating and generalized abdominal pain described as sharp, 8-9/10, which worsens with straining, he states he tried to take laxatives and consumed prune juice with no relief. Additionally states he has not passed any gas during this time. Patient reports presenting similar symptoms two years ago, which resolved with enema, in completed colonoscopy four years ago which showed polyps (patient does not remember their malignant). He denies fever, nausea, vomiting, chest pain, palpitation, rectal bleeding, unintentional weight loss, and other symptoms. Due to persistence of constipation he sought medical attention at the emergency department. On evaluation in the ED, patient was tachycardic but otherwise vitals were stable. Initial labs show thrombocytopenia, and elevated ALT. Abdominal CT shows dilated appearance of the large bowel with loss of haustral markings, there stranding about the descending colon. Chest x-ray shows no acute cardiopulmonary process. The patient was placed on NPO and IV fluids. He was admitted for further workup and monitoring. Past medical history: HTN Past Surgical History: Other (Intestinal repair when he was a ) Family History: Hypertension Smoke: No ALCOHOL: none Drugs: None Lives: Alone Domestic Violence: Neg ROS: 08/29/25: Pt was seen and examined by me at the bedside. Pt had passed stool 3 times with golitely and NG tube had been removed. Pt was kept npo and gastro and surgery consult were done. gastro suggested since pt passed stool- 3 episodes- check for stool occult blood, stool bacterial culture, WBC, and C diff. and began IV Flagyl. surg consult pending. 08/30/2025: Patient seen and examined by me at the bedside. Patient reports he passed a lot of stool yesterday. Surgery consult suggested every 6 hour enemas for 24 hours and after enemas or done give 1 gal of GoLYTELY. Gastroenterology suggested KUB showed: Colon measures up to 11 cm. An element of large-bowel obstruction cannot be entirely excluded; Findings as above raising the possibility of toxic megacolon in the appropriate clinical setting. An element of large-bowel obstruction cannot be entirely excluded. C diff Results negative. Potassium was at a 3.0 and has been repleted 40 mEq per orally and 40 mEq IV Objective vital signs Vital Sign Date Time Temp Pulse Resp B/P (MAP) Pulse Ox O2 Delivery O2 Flow Rate FiO2 08/30/25 12:31 98.0 83 18 123/73 (90) 93 98.0 08/30/25 08:00 Room Air* 0 21 Total Intake and Output 08/29/25 08/29/25 08/30/25 15:00 23:00 07:00 Intake Total 0 ml 100 ml 200 ml Balance 0 ml 100 ml 200 ml medications Current Medications Medications Dose Ordered Sig/Lamine Route Start Time Stop Time Status Last Admin Dose Admin Sodium Chloride 1,000 ml @ 100 mls/hr Q10H IV 08/28/25 23:45 08/29/25 21:06 100 MLS/HR Ketorolac Tromethamine 15 mg Q6HPRN PRN IV 08/28/25 23:45 09/02/25 23:44 Pantoprazole Sodium 40 mg DAILY IV 08/29/25 08:00 08/30/25 10:49 40 MG Metronidazole 100 ml @ 100 mls/hr Q8HR IV 08/29/25 14:00 08/30/25 05:54 100 MLS/HR Sodium Biphosphate/ Sodium Phosphate 135 ml Q6H MS 08/29/25 18:00 08/30/25 17:59 08/30/25 12:45 135 ML Examination General: The patient alert and oriented in person place and time. Patient following commands HEENT: Normocephalic, atraumatic, normal reactive pupils, EOM intact, pink conjunctiva, pink moist mucous membrane Respiratory/pulmonary: Bilateral chest expansion, no pain on palpation of chest wall, clear lungs bilaterally, vesicular murmurs present in almost all lung callahan, no associated crackles or wheezes. Cardiovascular: Normal RRR, normal S1 and S2, no murmurs Abdomen: Obese, Abdomen distended, decreased bowel sounds, soft, mild pain to deep palpation in abdominal quadrants, no palpable masses. shifted umblicus to left next to surgical scar Extremities: No deformities, there is no peripheral edema present at the lower extremities, normal pulses Skin: No rashes or pruritus, there is no sacral edema present at this time. Neurological: Intact cranial nerves with no focal neurologic deficits laboratory and microbiology Laboratory Tests 08/30/25 09:30 Test 08/30/25 09:30 Range/Units Serum Glucose 108 H 74-106 mg/dL Microbiology Date/Time Source Procedure Growth Status 08/29/25 16:00 Stool Stool Culture - Preliminary Resulted 08/29/25 16:00 Stool Shiga Toxin I & II - Final Resulted Labs and/or images reviewed: Labs reviewed by me, Image(s) reviewed by me Problem List/Assessment/Plan Problem List/Assessment/Plan #Possible bowel obstruction #Constipation due to above #Acute abdominal pain secondary to above - Abdominal CT: Dilated appearance of the large bowel with loss of haustral markings, there is stranding about the ascending colon, findings as above raising the possibility of toxic megacolon in the appropriate clinical setting, an element of large bowel obstruction can not be entirely excluded. - Patient has NG tube placed, on NPO, pending evaluation by GI and General surgery - NS 1000 cc bolus IV once - NS maintenance 100 cc/hr - ketorolac 15 mg IV q.6 hours PRN - Protonix 40 mg IV daily - Consult with GI suggested: since pt passed stool- 3 episodes- check for stool occult blood, stool bacterial culture, WBC, and C diff. - IV Flagyl - General surgery consulted, suggested every 6 hour enemas for 24 hours and after enemas or done give 1 gal of GoLYTELY. -KUB showed: Colon measures up to 11 cm. An element of large-bowel obstruction cannot be entirely excluded; Findings as above raising the possibility of toxic megacolon in the appropriate clinical setting. An element of large-bowel obstruction cannot be entirely excluded. -C diff negative #Hypokalemia, 3.3 - Potassium 20 mEq IV once #Thrombocytopenia - Monitor CBC #Hypertension - Continue lisinopril 10 mg p.o. daily once NPO is lifted #Hyperlipidemia - Continue atorvastatin 20 mg p.o. daily once NPO is lifted #Morbid obesity, BMI 44.0 kg/m2 - Patient has been counseled on the importance of maintaining a balanced diet, regular moderate exercise with intolerance, and weight loss. Diet: NPO DVT prophylaxis: SCDs (no heparin products due to thrombocytopenia) GI prophylaxis: Protonix 40 mg IV daily Case discussed with Dr. Nogueira Plan discussed with: Patient, Other (rn) Date of Service: Aug 30, 2025 Billing Provider: DOREEN NOGUEIRA MD Common Visit Codes: [id number] INP/OBS CARE(HIGH) BARBER MILLER RESIDENT Aug 30, 2025 13:31 DOREEN NOGUEIRA MD Aug 30, 2025 20:00
[2025-08-30] MEDS: POTASSIUM CHLORIDE 40 MEQ, LIDOCAINE 1% (LOCAL ANESTH.) 4 ML in SODIUM CHL 0.9% 250 ML IV ONE (15:15)
[2025-08-30] MEDS: POTASSIUM CHL 20 Meq TABLET PO ONE (16:27)
[2025-08-31] VITALS (8 sets, daily range): BP systolic 115–142; BP diastolic 61–82; PULSE 67–83; RESP 17–19; TEMP 97.4–98.1; O2SAT 94–96
[2025-08-31 05:10] LABS: Hemoglobin 15.1 g/dL (13.5-17.5); Nucleated Red Blood Cells % 0.1 %
[2025-08-31 05:13] LABS: Hematocrit 43.1 % (41.0-53.0); Mean Corpuscular Hemoglobin 33.5 pg (28.0-32.0); Mean Corpuscular Volume 95.9 fL (80.0-100.0)
[2025-08-31 05:20] LABS: Anion Gap 11 (5-15); Carbon Dioxide 23 mmol/L (20-31)
[2025-08-31 05:25] LABS: BUN/Creatinine Ratio 11.8 (10.0-20.0); Blood Urea Nitrogen 12 mg/dL (9-23); Magnesium 1.8 mg/dL (1.6-2.6)
[2025-08-31 05:33] LABS: Sodium 147 mmol/L (136-145)
[2025-08-31 05:34] LABS: Calcium 8.4 mg/dL (8.7-10.4); Chloride 113 mmol/L (98-107); Glucose 125 mg/dL (74-106); Potassium 2.9 mmol/L (3.5-5.1)
[2025-08-31] MEDS: POTASSIUM EFFERVESENT TAB 25 MEQ PO ONE (07:37)
[2025-08-31] MEDS: POTASSIUM CHL 20MEQ/100ML 100 ML IV SCH (07:38)
--- NOTE | 2025-08-31 17:17 | DVHPNRES ---
Progress Note Date Seen: Aug 31, 2025 Resident Creating Document: RASHAD AMADOR RESIDENT Has the PT tested + for MRSA If YES, has PT been informed?: No Medical Necessity Reason Pt with a Central, PICC or Fol: No Subjective Review of Systems This is a 70-year-old deaf male with a past medical history of hypertension and hyperlipidemia, who initially presented to the ER on August 28, 2025, with three days of constipation associated with abdominal bloating and generalized abdominal pain rated 89/10, sharp, diffuse, and worsened with straining. The patient had tried laxatives and prune juice without relief and denied fever, nausea, vomiting, chest pain, or urinary symptoms. He reported a similar episode two years ago that resolved after enemas. Today (August 31, 2025): The patient reports significant symptomatic improvement after Fleet enemas, with 58 bowel movements since yesterday.?Abdominal pain and bloating have markedly improved.?No nausea, vomiting, or new complaints.?Tolerating clear liquid diet well.?C. diff and stool cultures are negative. Potassium was low (2.9 mEq/L) and replaced both IV and orally. Magnesium 1.8 mg/dLreplenished today.?CBC unremarkable, WBC 7.9 K/uL, Hb 15.1 g/dL, Hct 43.1%, platelets stable.?BMP: Na 147, K 2.9 (corrected), Cl 113, Cr 1.0, BUN 11.8. Review of Systems : * General: No fever, chills, or malaise. * GI: Improved abdominal pain and bloating; passing stool and flatus; no nausea/vomiting. * : No dysuria or hematuria. * CV: No chest pain or palpitations. * Respiratory: No dyspnea or cough. * Neuro: Alert, oriented, communicates via sign language. * MSK/Skin: No new swelling, rash, or pain. Objective vital signs Vital Sign Date Time Temp Pulse Resp B/P (MAP) Pulse Ox O2 Delivery O2 Flow Rate FiO2 08/31/25 12:39 97.7 67 19 132/82 (99) 94 97.7 08/31/25 08:00 Room Air* 0 21 Total Intake and Output 08/30/25 08/30/25 08/31/25 15:00 23:00 07:00 Intake Total 100 ml 550 ml 1000 ml Balance 100 ml 550 ml 1000 ml medications Current Medications Medications Dose Ordered Sig/Lamine Route Start Time Stop Time Status Last Admin Dose Admin Sodium Chloride 1,000 ml @ 100 mls/hr Q10H IV 08/28/25 23:45 08/30/25 22:46 100 MLS/HR Ketorolac Tromethamine 15 mg Q6HPRN PRN IV 08/28/25 23:45 09/02/25 23:44 Pantoprazole Sodium 40 mg DAILY IV 08/29/25 08:00 08/31/25 10:13 40 MG Metronidazole 100 ml @ 100 mls/hr Q8HR IV 08/29/25 14:00 08/31/25 16:52 100 MLS/HR Examination Physical Examination: General: Alert, cooperative, deaf, communicates by writing/signing, in no acute distress. Vitals: [ T 98.1F, HR 82, BP 132/78, RR 18, SpO? 98% RA] HEENT: No icterus, mucosa moist. CVS: RRR, no murmurs, rubs, or gallops. Lungs: Clear bilaterally.Abdomen: Mildly distended, soft, non-tender, positive bowel sounds, no guarding/rebound. Extremities: No edema. Neuro: Alert and oriented 3.Skin: Warm, dry, intact. laboratory and microbiology Laboratory Tests 08/31/25 04:45 Test 08/31/25 04:45 Range/Units Serum Glucose 125 H 74-106 mg/dL Microbiology Date/Time Source Procedure Growth Status 08/29/25 16:00 Stool Clostridium difficile Toxin Assay - Final Complete Problem List/Assessment/Plan Problem List/Assessment/Plan Assessment & Plan (System-Based): 1. Gastrointestinal: Large Bowel Obstruction vs. Colonic Pseudo-obstruction * Assessment: CT abdomen showed colonic dilation up to 11 cm with loss of haustral markings; C. diff and stool studies negative. Clinical improvement noted after bowel prep and enemas. Plan: * Continue clear liquid diet; advance to soft diet as tolerated. * Continue GoLYTELY bowel regimen. * Continue Fleet enema PRN for no bowel movement >12 hrs. * IV fluids: NS 100 mL/hr maintenance. * Protonix 40 mg IV daily (GI prophylaxis). * Continue IV Metronidazole 500 mg q8h 5 days. * Monitor for signs of perforation, peritonitis, or worsening distension. * Repeat KUB tomorrow to evaluate bowel gas pattern and resolution. * Re-consult Surgery if distension worsens or no bowel movement >24 hrs. 2. Electrolyte Abnormalities Hypokalemia, Hypomagnesemia * Assessment: Likely due to bowel prep losses. * Plan: * Replace K: KCl 40 mEq PO 1, recheck BMP q12h. * Replace Mg?: MgSO? IV once. * Monitor for cardiac arrhythmias (telemetry). * Maintain K? >4.0, Mg? >2.0. 3. Thrombocytopenia (Mild, stable) * Assessment: Possibly dilutional or related to transient illness. * Plan: * Monitor CBC daily. * Hold heparin for DVT prophylaxis. * Use SCDs only until platelet count >100K. 4. Hypertension * Assessment: Stable; on chronic therapy. * Plan: * Continue Lisinopril 10 mg PO daily when oral intake resumed. * Monitor BP q4h. 5. Hyperlipidemia * Plan: * Resume Atorvastatin 20 mg PO nightly once NPO lifted. * Monitor LFTs weekly. 6. Morbid Obesity (BMI 44.0 kg/m) * Plan: * Jig Hand on low-fat, high-fiber diet and moderate exercise post-discharge. * Monitor for metabolic syndrome complications. 7. Pain Management * Plan: * Ketorolac 15 mg IV q6h PRN (limit 48 hrs total use). * Avoid opioids to prevent further constipation. * Assess pain daily. 8. Prophylaxis * DVT: Sequential compression devices (SCDs) avoid pharmacologic anticoagulation due to thrombocytopenia. * GI: Protonix 40 mg IV daily. * Electrolyte: Daily BMP, Mg, Phos. * Infection: Monitor for fevers, leukocytosis. Case discussed in detail with the attending physician, including the clinical presentation, diagnostic workup, and comprehensive management plan. The patient was present for the discussion and demonstrated understanding of his condition and the proposed plan Plan discussed with: Patient Dietary Evaluation Review Recommendations by RD: Dietary education by RD Comments: 1) Encourage optimal PO intake 2) Advance to cardiac diet when medically feasible 3) Refer to outpatient RD for weight management 4) Follow-up with gastroenterology and cardiology 5) Continue to monitor I&O, labs, and skin integrity Expected Outcomes/Goals: 1) appetite and labs to improve 2) diet to advance 3) GI symptoms to resolve 4) gradual wt loss 5) f/u in 3-5 days Date of Service: Aug 31, 2025 Billing Provider: JADA MANE DO Common Visit Codes: [id number] INP/OBS CARE(HIGH) RASHAD AMADOR RESIDENT Aug 31, 2025 17:17 JADA MANE DO Sep 03, 2025 00:01
[2025-09-01] VITALS (8 sets, daily range): BP systolic 120–150; BP diastolic 69–93; PULSE 76–83; RESP 16–20; TEMP 97.5–98.8; O2SAT 93–96
[2025-09-01 06:46] LABS: Hematocrit 43.6 % (41.0-53.0); Hemoglobin 15.2 g/dL (13.5-17.5); Mean Corpuscular Hemoglobin 33.2 pg (28.0-32.0); Mean Corpuscular Volume 95.2 fL (80.0-100.0); Nucleated Red Blood Cells % 0.2 %
--- NOTE | 2025-09-01 07:06 | DVH ---
Indication: Abdominal Distension Technique: 2 frontal views of the abdomen were obtained Comparison: XY KUB ABDOMEN SINGLE VIEW on DOS: 08/30/25, CT CT AB PEL WO CON-NO ORAL OR IV on DOS: 08/28/25 IMPRESSION: Examination is limited by technique. There are prominent loops of bowel with gaseous distention of co lonic loops. Possible gaseous distention of small-bowel loops noted up to 5.2 cm. Assessment for bella e air is near impossible. Findings may be on the basis of ileus versus obstruction. Findings appear s imilar to prior CT of 08/28/2025.
[2025-09-01 07:11] LABS: Alanine Aminotransferase 30 U/L (7-40); Albumin 3.8 g/dL (3.2-4.8); Alkaline Phosphatase 47 U/L (46-116); Anion Gap 12 (5-15); BUN/Creatinine Ratio 10.3 (10.0-20.0); Blood Urea Nitrogen 9 mg/dL (9-23); Carbon Dioxide 23 mmol/L (20-31); Glucose 105 mg/dL (74-106); Total Protein 5.8 g/dL (5.7-8.2)
[2025-09-01 07:12] LABS: Bilirubin, Total 0.8 mg/dL (0.2-1.0); Calcium 8.3 mg/dL (8.7-10.4); Chloride 111 mmol/L (98-107); Potassium 3.0 mmol/L (3.5-5.1); Sodium 146 mmol/L (136-145)
[2025-09-01] MEDS: POTASSIUM CHLORIDE 40 MEQ, LIDOCAINE 1% (LOCAL ANESTH.) 4 ML in SODIUM CHL 0.9% 250 ML IV ONE (08:45)
[2025-09-01] MEDS: POTASSIUM CHL 20 Meq TABLET PO ONE ×2 (09:58→14:08)
--- NOTE | 2025-09-01 11:30 | DVHPNRES ---
Progress Note Date Seen: Sep 01, 2025 Resident Creating Document: BARBER MILLER RESIDENT Has the PT tested + for MRSA If YES, has PT been informed?: No Medical Necessity Reason Pt with a Central, PICC or Fol: No Subjective Review of Systems Mr. Garay is a deaf 64-year-old male with prior medical history of hypertension and hyperlipidemia, who presents today with chief complaint of constipation. History was taken with ASL translation by Rosalie Brand EMT. He refers 3 days of constipation associated with abdominal bloating and generalized abdominal pain described as sharp, 8-9/10, which worsens with straining, he states he tried to take laxatives and consumed prune juice with no relief. Additionally states he has not passed any gas during this time. Patient reports presenting similar symptoms two years ago, which resolved with enema, in completed colonoscopy four years ago which showed polyps (patient does not remember their malignant). He denies fever, nausea, vomiting, chest pain, palpitation, rectal bleeding, unintentional weight loss, and other symptoms. Due to persistence of constipation he sought medical attention at the emergency department. On evaluation in the ED, patient was tachycardic but otherwise vitals were stable. Initial labs show thrombocytopenia, and elevated ALT. Abdominal CT shows dilated appearance of the large bowel with loss of haustral markings, there stranding about the descending colon. Chest x-ray shows no acute cardiopulmonary process. The patient was placed on NPO and IV fluids. He was admitted for further workup and monitoring. Past medical history: HTN Past Surgical History: Other (Intestinal repair when he was a ) Family History: Hypertension Smoke: No ALCOHOL: none Drugs: None Lives: Alone Domestic Violence: Neg ROS: 08/29/25: Pt was seen and examined by me at the bedside. Pt had passed stool 3 times with golitely and NG tube had been removed. Pt was kept npo and gastro and surgery consult were done. gastro suggested since pt passed stool- 3 episodes- check for stool occult blood, stool bacterial culture, WBC, and C diff. and began IV Flagyl. surg consult pending. 08/30/2025: Patient seen and examined by me at the bedside. Patient reports he passed a lot of stool yesterday. Surgery consult suggested every 6 hour enemas for 24 hours and after enemas or done give 1 gal of GoLYTELY. Gastroenterology suggested KUB. August 31, 2025 The patient reports significant symptomatic improvement after Fleet enemas, with 58 bowel movements since yesterday.?Abdominal pain and bloating have markedly improved.?No nausea, vomiting, or new complaints.?Tolerating clear liquid diet well.?C. diff and stool cultures are negative. Potassium was low (2.9 mEq/L) and replaced both IV and orally. Magnesium 1.8 mg/dLreplenished today.?CBC unremarkable, WBC 7.9 K/uL, Hb 15.1 g/dL, Hct 43.1%, platelets stable.?BMP: Na 147, K 2.9 (corrected), Cl 113, Cr 1.0, BUN 11.8. 09/01/2025: Patient was seen and examined at the bedside. Patient reports abdominal pain and bloating has decreased. He had four bowel movements yesterday night. He is able to 12 with clear liquid diet and we progressing to full liquid diet from today. Potassium was at 3.0 and was repleted with oral supplement of 60 mEq. Objective vital signs Vital Sign Date Time Temp Pulse Resp B/P (MAP) Pulse Ox O2 Delivery O2 Flow Rate FiO2 09/01/25 09:00 98.2 82 20 150/80 (103) 96 98.2 09/01/25 08:00 Room Air* 0 21 Total Intake and Output 08/31/25 08/31/25 09/01/25 15:00 23:00 07:00 Intake Total 550 ml 650 ml 500 ml Balance 550 ml 650 ml 500 ml medications Current Medications Medications Dose Ordered Sig/Lamine Route Start Time Stop Time Status Last Admin Dose Admin Sodium Chloride 1,000 ml @ 100 mls/hr Q10H IV 08/28/25 23:45 09/01/25 07:45 100 MLS/HR Ketorolac Tromethamine 15 mg Q6HPRN PRN IV 08/28/25 23:45 09/02/25 23:44 Pantoprazole Sodium 40 mg DAILY IV 08/29/25 08:00 09/01/25 09:58 40 MG Metronidazole 100 ml @ 100 mls/hr Q8HR IV 08/29/25 14:00 09/01/25 05:50 100 MLS/HR Atorvastatin Calcium 20 mg HS PO 09/01/25 22:00 Examination General: The patient alert and oriented in person place and time. Patient following commands HEENT: Normocephalic, atraumatic, normal reactive pupils, EOM intact, pink conjunctiva, pink moist mucous membrane Respiratory/pulmonary: Bilateral chest expansion, no pain on palpation of chest wall, clear lungs bilaterally, vesicular murmurs present in almost all lung callahan, no associated crackles or wheezes. Cardiovascular: Normal RRR, normal S1 and S2, no murmurs Abdomen: Obese, Abdomen distended, decreased bowel sounds, soft, no pain on deep palpation in abdominal quadrants-improved since yesterday, no palpable masses. shifted umblicus to left next to surgical scar Extremities: No deformities, there is no peripheral edema present at the lower extremities, normal pulses Skin: No rashes or pruritus, there is no sacral edema present at this time. Neurological: Intact cranial nerves with no focal neurologic deficits laboratory and microbiology Laboratory Tests 09/01/25 05:26 Test 09/01/25 05:26 Range/Units Serum Glucose 105 74-106 mg/dL Microbiology Date/Time Source Procedure Growth Status 08/29/25 16:00 Stool Clostridium difficile Toxin Assay - Final Complete Labs and/or images reviewed: Labs reviewed by me, Image(s) reviewed by me Problem List/Assessment/Plan Problem List/Assessment/Plan #Possible bowel obstruction #Constipation due to above #Acute abdominal pain secondary to above - Abdominal CT: Dilated appearance of the large bowel with loss of haustral markings, there is stranding about the ascending colon, findings as above raising the possibility of toxic megacolon in the appropriate clinical setting, an element of large bowel obstruction can not be entirely excluded. - Patient has NG tube placed, on NPO, pending evaluation by GI and General surgery - NS 1000 cc bolus IV once - NS maintenance 100 cc/hr - ketorolac 15 mg IV q.6 hours PRN - Protonix 40 mg IV daily - Consult with GI suggested: since pt passed stool- 3 episodes- check for stool occult blood, stool bacterial culture, WBC, and C diff. - IV Flagyl 500mg q8 - General surgery consulted, suggested every 6 hour enemas for 24 hours and after enemas or done give 1 gal of GoLYTELY. -KUB shows Colon measures up to 11 cm. An element of large-bowel obstruction cannot be entirely excluded; Findings as above raising the possibility of toxic megacolon in the appropriate clinical setting. An element of large-bowel obstruction cannot be entirely excluded. -repeat KUB on 09/01 shows Examination is limited by technique. There are prominent loops of bowel with gaseous distention of colonic loops. Possible gaseous distention of small-bowel loops noted up to 5.2 cm. Assessment for free air is near impossible. Findings may be on the basis of ileus versus obstruction. Findings appear similar to prior CT of 08/28/2025. -advanced to full liquid diet on 09/01 #Hypokalemia - repleted as needed #Thrombocytopenia - Monitor CBC #Hypertension - Continue lisinopril 10 mg p.o. daily #Hyperlipidemia - Continue atorvastatin 20 mg p.o. daily #Morbid obesity, BMI 44.0 kg/m2 - Patient has been counseled on the importance of maintaining a balanced diet, regular moderate exercise with intolerance, and weight loss. Diet: Full liquid diet DVT prophylaxis: SCDs (no heparin products due to thrombocytopenia) GI prophylaxis: Protonix 40 mg IV daily Case discussed with Dr. Garcia, patient Plan discussed with: Patient My Orders My Orders Orders - BARBER MILLER Procedure Category Date Status Time Atorvastatin (Lipitor) PHA 09/01/25 In Process 22:00 Full Liq Diet DIET 09/01/25 Transmitted Lunch Dietary Evaluation Review Recommendations by RD: Dietary education by RD Comments: 1) Encourage optimal PO intake 2) Advance to cardiac diet when medically feasible 3) Refer to outpatient RD for weight management 4) Follow-up with gastroenterology and cardiology 5) Continue to monitor I&O, labs, and skin integrity Expected Outcomes/Goals: 1) appetite and labs to improve 2) diet to advance 3) GI symptoms to resolve 4) gradual wt loss 5) f/u in 3-5 days Date of Service: Sep 01, 2025 Billing Provider: BARBER MILLER Common Visit Codes: [id number] INP/OBS CARE(HIGH) BARBER MILLER Sep 01, 2025 11:30 CAYDEN GARCIA MD Sep 05, 2025 19:05
--- NOTE | 2025-09-01 19:50 | DVHPN2 ---
Progress Note - Dictate Date Seen: Sep 01, 2025 Has the PT tested + for MRSA If YES, has PT been informed?: No Medical Necessity Reason Pt with a Central, PICC or Fol: No Subjective No new complaints, decrease abdominal pain and bloating Patient had four bowel movements since last night Diet advance to full liquid today Potassium was replaced vital signs Vital Sign Date Time Temp Pulse Resp B/P (MAP) Pulse Ox O2 Delivery O2 Flow Rate FiO2 09/01/25 16:38 98.0 77 20 135/88 (104) 95 98.0 09/01/25 08:00 Room Air* 0 21 Total Intake and Output 08/31/25 08/31/25 09/01/25 15:00 23:00 07:00 Intake Total 550 ml 650 ml 500 ml Balance 550 ml 650 ml 500 ml medications Current Medications Medications Dose Ordered Sig/Lamine Route Start Time Stop Time Status Last Admin Dose Admin Sodium Chloride 1,000 ml @ 100 mls/hr Q10H IV 08/28/25 23:45 09/01/25 17:39 100 MLS/HR Ketorolac Tromethamine 15 mg Q6HPRN PRN IV 08/28/25 23:45 09/02/25 23:44 Pantoprazole Sodium 40 mg DAILY IV 08/29/25 08:00 09/01/25 09:58 40 MG Metronidazole 100 ml @ 100 mls/hr Q8HR IV 08/29/25 14:00 09/01/25 14:04 100 MLS/HR Atorvastatin Calcium 20 mg HS PO 09/01/25 22:00 objective General: NAD, AAOX3 Chest: lung callahan clear to auscultation Heart: RRR, no murmur Abdomen: Less distended, positive bowel sounds laboratory and microbiology Laboratory Tests 09/01/25 05:26 Test 09/01/25 05:26 Range/Units Serum Glucose 105 74-106 mg/dL Abdominal X ray IMPRESSION: Examination is limited by technique. There are prominent loops of bowel with gaseous distention of colonic loops. Possible gaseous distention of small-bowel loops noted up to 5.2 cm. Assessment for free air is near impossible. Findings may be on the basis of ileus versus obstruction. Findings appear similar to prior CT of 08/28/2025. Problems(with codes): (1) Colonic pseudoobstruction (2) Ileus (3) Abdominal distention (4) Obstipation (5) Toxic megacolon Prognosis Plan Advance diet as tolerated Continue supportive care Last colonoscopy with polypectomy five years ago with gastro group Outpatient follow up with motorboat mechanic inboard/outboard services to schedule elective surveillance colonoscopy Once again thank you for allowing me to participate in the care of this patient Avoid narcotics Dietary Evaluation Review Recommendations by RD: Dietary education by RD Comments: 1) Encourage optimal PO intake 2) Advance to cardiac diet when medically feasible 3) Refer to outpatient RD for weight management 4) Follow-up with gastroenterology and cardiology 5) Continue to monitor I&O, labs, and skin integrity Expected Outcomes/Goals: 1) appetite and labs to improve 2) diet to advance 3) GI symptoms to resolve 4) gradual wt loss 5) f/u in 3-5 days Plan discussed with: Other (Lizette Chacko) RENAY CARVAJAL MD Sep 01, 2025 19:50
[2025-09-01] MEDS: ATORVASTATIN 20 MG TAB PO SCH (22:17)
[2025-09-02] VITALS (7 sets, daily range): BP systolic 128–137; BP diastolic 77–88; PULSE 67–98; RESP 14–18; TEMP 36.5; O2SAT 92–94
[2025-09-02 07:53] LABS: Hemoglobin 15.0 g/dL (13.5-17.5)
[2025-09-02 07:57] LABS: Anion Gap 13 (5-15); Carbon Dioxide 21 mmol/L (20-31); Hematocrit 42.8 % (41.0-53.0); Mean Corpuscular Hemoglobin 33.2 pg (28.0-32.0); Mean Corpuscular Volume 94.9 fL (80.0-100.0); Sodium 145 mmol/L (136-145)
[2025-09-02 08:03] LABS: BUN/Creatinine Ratio 13.9 (10.0-20.0); Blood Urea Nitrogen 10 mg/dL (9-23)
[2025-09-02 08:04] LABS: Magnesium 2.0 mg/dL (1.6-2.6)
[2025-09-02 08:06] LABS: Calcium 8.4 mg/dL (8.7-10.4); Chloride 111 mmol/L (98-107); Glucose 108 mg/dL (74-106); Potassium 2.8 mmol/L (3.5-5.1)
[2025-09-02 08:27] LABS: Total Cells Counted 79.0 (100)
[2025-09-02 08:28] LABS: RBC Morphology Normal
[2025-09-02] MEDS: POTASSIUM CHLORIDE 40 MEQ, LIDOCAINE 1% (LOCAL ANESTH.) 4 ML in SODIUM CHL 0.9% 250 ML IV ONE (09:30)
[2025-09-02] MEDS: POTASSIUM CHL 20 Meq TABLET PO ONE ×2 (11:05→16:46)
[2025-09-02] MEDS ORDERED: LACT10SO3 PO (14:08)
[2025-09-02] MEDS ORDERED: POTA-180 PO (14:08)
--- NOTE | 2025-09-02 14:26 | DVHDSRES ---
Discharge Summary Date of Admission Resident Creating Document: BARBER MILLER RESIDENT Aug 28, 2025 at 23:39 Date of Discharge: Sep 02, 2025 Admitting Diagnosis Bowel obstruction Labs/Diagnostic Data: Laboratory Results Test 09/02/25 05:21 09/01/25 05:26 08/30/25 09:30 08/29/25 16:35 White Blood Count 5.3 10^3/uL (4.4-10.8) Red Blood Count 4.51 10^6/uL (4.5-5.90) Hemoglobin 15.0 g/dL (13.5-17.5) Hematocrit 42.8 % (41.0-53.0) Mean Corpuscular Volume 94.9 fL (80.0-100.0) Mean Corpuscular Hemoglobin 33.2 pg (28.0-32.0) Mean Corpuscular Hemoglobin Concent 34.9 g/dL (32.0-36.0) Red Cell Distribution Width 14.0 % (11.8-14.3) Platelet Count 53 10^3/uL (140-450) Mean Platelet Volume 8.9 fL (6.9-10.8) Neutrophils (%) (Auto) % (37.0-80.0) Lymphocytes (%) (Auto) % (10.0-50.0) Monocytes (%) (Auto) % (0.0-12.0) Basophils (%) (Auto) % (0.0-2.0) Neutrophils # (Auto) 10 ^3/uL (1.6-8.6) Lymphocytes # (Auto) 10 ^3/uL (0.4-5.4) Monocytes # (Auto) 10 ^3/uL (0-1.3) Differential Total Cells Counted 79.0 (100) Neutrophils % (Manual) 50 (37.0-80.0) Band Neutrophils % (Manual) 6 Lymphocytes % (Manual) 20 (10.0-50.0) Monocytes % (Manual) 0 (0-12) Eosinophils % (Manual) 1 (0-7) Basophils % (Manual) 0 (0.0-2.0) Metamyelocytes % (manual) 0 Myelocytes % (Manual) 0 Promyelocytes % (Manual) 0 Blast Cells % (Manual) 0 Reactive Lymphocytes 2 Platelet Estimate Decreased Red Blood Cell Morphology Normal Sodium Level 145 mmol/L (136-145) Potassium Level 2.8 mmol/L (3.5-5.1) Chloride Level 111 mmol/L (98-107) Carbon Dioxide Level 21 mmol/L (20-31) Anion Gap 13 (5-15) Blood Urea Nitrogen 10 mg/dL (9-23) Creatinine 0.72 mg/dL (0.700-1.30) Glomerular Filtration Rate Calc 103 mL/min (>90) BUN/Creatinine Ratio 13.9 (10.0-20.0) Serum Glucose 108 mg/dL (74-106) Calcium Level 8.4 mg/dL (8.7-10.4) Magnesium Level 2.0 mg/dL (1.6-2.6) Eosinophils (%) (Auto) 0.8 % (0.0-7.0) Eosinophils # (Auto) 0.1 10 ^3/uL (0-0.8) Basophils # (Auto) 0 10 ^3/uL (0-0.2) Nucleated Red Blood Cells 0.2 % Total Bilirubin 0.8 mg/dL (0.2-1.0) Aspartate Amino Transferase (AST) 23 U/L (13-40) Alanine Aminotransferase (ALT) 30 U/L (7-40) Alkaline Phosphatase 47 U/L (46-116) Total Protein 5.8 g/dL (5.7-8.2) Albumin 3.8 g/dL (3.2-4.8) Carcinoembryonic Antigen 2.37 ng/mL (<=5.0) Stool Occult Blood Negative (Negative) Stool Occult Blood Sample #3 (Negative) Stool for White Cells None seen Test 08/29/25 16:32 08/29/25 09:09 08/28/25 19:30 Urine Color Yellow (Yellow) Urine Clarity Clear (Clear) Urine pH 5.5 (5.0-9.0) Urine Specific [employer] 1.035 (1.001-1.035) Urine Protein 1+ (Negative) Urine Ketones Trace (Negative) Urine Blood Negative /uL (Negative) Urine Nitrite Negative (Negative) Urine Bilirubin Negative (Negative) Urine Urobilinogen Normal mg/dL (Negative) Urine Leukocyte Esterase Negative /uL (Negative) Urine RBC 4 /hpf (0 - 3) Urine Microscopic WBC 3 /HPF (0-3) Urine Squamous Epithelial Cells None seen /hpf (<5) Urine Bacteria Few /hpf (None Seen) Urine Mucus Few (None Seen) Urine Sperm Present /hpf (None Seen) Urine Glucose Normal mg/dL (Normal) Urine Opiates Screen Neg (NEGATIVE) Urine Fentanyl Screen Neg (NEGATIVE) Urine Barbiturates Screen Neg (NEGATIVE) Urine Phencyclidine Screen Neg (NEGATIVE) Urine Amphetamines Screen Neg (NEGATIVE) Urine Benzodiazepines Screen Neg (NEGATIVE) Urine Cocaine Screen Neg (NEGATIVE) Urine Cannabinoids Screen Neg (NEGATIVE) Lactic Acid Level 1.8 mmol/L (0.4-2.0) Hemoglobin A1c 5.4 % A1C (<5.7) Phosphorus Level 3.5 mg/dL (2.4-5.1) Lipase 33 U/L (12-53) Vitamin B12 Level 239 pg/mL (211-911) Vitamin D 25-Hydroxy 27.7 ng/mL (30.0-100) Thyroid Stimulating Hormone (TSH) 2.88 uIU/mL (0.55-4.78) Other Laboratory Tests 09/02/25 05:21 Brief Hx & Hospital Course: Mr. Garay is a deaf 64-year-old male with prior medical history of hypertension and hyperlipidemia, who presents today with chief complaint of constipation. History was taken with ASL translation by Rosalie Brand EMT. He refers 3 days of constipation associated with abdominal bloating and generalized abdominal pain described as sharp, 8-9/10, which worsens with straining, he states he tried to take laxatives and consumed prune juice with no relief. Additionally states he has not passed any gas during this time. Patient reports presenting similar symptoms two years ago, which resolved with enema, in completed colonoscopy four years ago which showed polyps (patient does not remember their malignant). He denies fever, nausea, vomiting, chest pain, palpitation, rectal bleeding, unintentional weight loss, and other symptoms. Due to persistence of constipation he sought medical attention at the emergency department. On evaluation in the ED, patient was tachycardic but otherwise vitals were stable. Initial labs show thrombocytopenia, and elevated ALT. Abdominal CT shows dilated appearance of the large bowel with loss of haustral markings, there stranding about the descending colon. Chest x-ray shows no acute cardiopulmonary process. The patient was placed on NPO and IV fluids. He was admitted for further workup and monitoring. Past medical history: HTN Past Surgical History: Other (Intestinal repair when he was a ) Family History: Hypertension Smoke: No ALCOHOL: none Drugs: None Lives: Alone Domestic Violence: Neg Brief history of hospitalization: patient came with abdominal distention and constipation. initially we kept the patient NPO and did abdominal CT which showed dilated appearance of the large bowel with loss of haustral markings, Dyaz[place] stranding around the descending colon, findings as above raising the possibility of toxic megacolon the appropriate clinical setting, an element of large bowel obstruction can not be entirely ruled out. A GI consult and a surgery consult was placed. We gave him normal saline boluses as well as maintain its fluids. For the pain ketorolac 15 mg IV q.6 PRN was given. Patient was administered Protonix 40 mg IV daily. surgery we suggested enema 6 hourly for 24 hours and after that 1 gal of GoLYTELY. Patient began passing stool and felt better. IV Flagyl 500 mg Q 8 was given. GI suggested since patient had passed stool to check for stool occult blood, bacterial culture, WBC and C diff all came back negative. KUB on day 2 showed colon measuring up to 11 cm. A repeat KUB on day 4 showed gaseous distention of colonic loops and possible gaseous distention of small-bowel loops as well. Patient was advanced to clear liquid diet and then to a full liquid diet and patient has been able to tolerate it. His abdomen which was tense in the beginning of hospitalization has become softer and patient is more comfortable. During his hospitalization his potassium levels were deranged and we repleted potassium. For his comorbidities of hypertension and hyperlipidemia we continued lisinopril and atorvastatin he takes at home. Patient is morbidly obese with a BMI of 44.0 kg/ meter sq patient has been counseled regarding the importance of maintaining balance diet, regular moderate exercise and the need of weight loss. Patient is now stable for discharge and can go home. He has communicated understanding and agreed to the discharge plan. Pt is lying on bed General Appearance: Alert, Oriented X3, Cooperative, Not in acute distress HEENT: Atraumatic, Mucous membranes moist/pink Respiratory: Clear to auscultation, Normal air movement, No added sounds Cardiovascular: Regular rate, Normal S1, Normal S2, No murmurs Abdominal: Active bowel sounds, Soft, no distention, no tenderness Extremities: No edema, Normal pulses, No tenderness/swelling Skin: No Significant rash, except past surgical scars Neuro: Normal speech, sensorimotor deficits none Psych/Mental Status: Mental status NL, Mood NL Nurse was there as carpenter repairer during examination Operations or Procedures CT CT AB PEL WO CON-NO ORAL OR IV Impression: 1. Findings as above raising the possibility of toxic megacolon in the appropriate clinical setting. An element of large-bowel obstruction cannot be entirely excluded. Further clinical correlation is suggested. 2. Additional findings as detailed. PROCEDURE(s): CXR1 - CHEST XRAY 1 VIEW IMPRESSION: 1. Enteric catheter courses below the level of the diaphragms and terminates beyond the inferior margin of the image. 2. Moderate diffuse increased prominence of the pulmonary vasculature. XY KUB ABDOMEN SINGLE VIEW IMPRESSION: Colon measures up to 11 cm. An element of large-bowel obstruction cannot be entirely excluded. Findings as above raising the possibility of toxic megacolon in the appropriate clinical setting. An element of large-bowel obstruction cannot be entirely excluded. PROCEDURE(s): KUB - KUB ABDOMEN SINGLE VIEW IMPRESSION: Examination is limited by technique. There are prominent loops of bowel with gaseous distention of colonic loops. Possible gaseous distention of small-bowel loops noted up to 5.2 cm. Assessment for free air is near impossible. Findings may be on the basis of ileus versus obstruction. Findings appear similar to prior CT of 08/28/2025. Condition at Discharge: Stable Final Diagnosis/Problems List #bowel obstruction due to Constipation, resolved #Acute abdominal pain secondary to above #Hypokalemia #Thrombocytopenia #Hypertension #Hyperlipidemia #Morbid obesity, BMI 44.0 kg/m2 Discharge Disposition: Home Discharge Instruct/Medications Diet: Consistent carbohydrate, Cardiac 2g Na,low cholest Activity: No Restrictions, As Tolerated Follow Up/Referral: Follow up at discharge clinic within 2 weeks on Tuesday afternoon between 1-5 p.m. Follow up with primary care physician in 10 days Medications: Lactulose 10gm/ 15 mL per oral twice a day for 5 days Potassium chloride 20 mEq tablet per orally daily for 5 days Scheduled Potassium Chloride (Potassium Chloride ER), 20 MEQ PO DAILY Scheduled PRN Lactulose (Lactulose), 10 GM PO BID PRN Discharge Statement: "Patient was advised to return to the ER or call 911 if any headaches, dizziness, shortness of breath, chest pain, abdominal pain, bleeding, fevers, or worsening of medical condition. Patient was counseled about treatment plan, medications, possible side effects, patientverbalized understanding. All questions were answered to the best of my ability. This discharge took greater then 30 minutes in planning, reviewing documentation, counseling the patient, and discussing with other team members." ASSESSMENT ASSESSMENT Assessment Bowel obstruction due to constipation, resolved Date of Service: Sep 02, 2025 Billing Provider: BARBER MILLER Common Visit Codes: 22168-GQD/OBS DISCH DAY >30min BARBER MILLER Sep 02, 2025 14:26 DOREEN HINES MD Sep 02, 2025 18:24
== END 2025-09-02 18:30 | disposition home or self-care (01) | DRG 389 ==
LOC: ER 19:06 → OVERFLOW 23:39 → EAST 08-29 04:56
PROVIDERS: ADMIT Student in an Organized Health Care Education/Training Program; ATTEND Emergency Medicine
PROC: 0D9670Z Drainage of Stomach with Drainage Device, Via Natural or Artificial Opening (ICD-10-PCS; principal; 2025-08-28)
DX: K56.699 Other intestinal obstruction unspecified as to partial versus complete obstruction (principal); Z68.41 Body mass index [BMI] 40.0-44.9, adult; K56.41 Fecal impaction; D69.6 Thrombocytopenia, unspecified; Z82.49 Family history of ischemic heart disease and other diseases of the circulatory system; E66.01 Morbid (severe) obesity due to excess calories; I10 Essential (primary) hypertension; E87.6 Hypokalemia; E83.42 Hypomagnesemia; E78.5 Hyperlipidemia, unspecified; Z83.3 Family history of diabetes mellitus
CPT/HCPCS: 36415; 71045; 74018; 74176; 80048; 80053; 80307; 81001; 82270; 82306; 82378; 82607; 83036; 83605; 83690; 83735; 84100; 84132; 84443; 85007; 85025; 85027; 85048; 87045; 87427; 87493; G0378; J1885; J2003; J2470; J3480; J3490